=== PATIENT | female | born 1950 | race Caucasian/White ===

== ENCOUNTER → 2016-08-25 | Outpatient (CLI) | payer OTHER, BC ==
[~2016-08-25] MED LIST: DIFLUCAN100 MG PO; LIPITOR10 MG PO; METFORMIN HCL500 MG PO; PERCOCET PO; TUMS PO; XARELTO10 MG PO; ZOLOFT50 MG PO
== END ==
LOC: RAD 10:41
DX: Z12.31 Encounter for screening mammogram for malignant neoplasm of breast (principal)

== ENCOUNTER → 2017-09-13 | Outpatient (CLI) | payer OTHER | LOC: RAD 13:49 | DX: Z12.31 Encounter for screening mammogram for malignant neoplasm of breast (principal) ==

== ENCOUNTER → 2018-05-22 | Outpatient (CLI) | payer OTHER ==
[~2018-05-22] VITALS: Ht 167.6 cm; Wt 89.4 kg
[~2018-05-22] MED LIST changes: +ALEVE220 MG PO; +ASPIR 8181 MG PO; +BENADRYL25 MG PO; +COZAAR 25 MG TA25 M2 PO; +JARDIANCE25 MG PO
[2018-05-22 07:44] VITALS: BP 118/49
--- NOTE | 2018-05-22 09:31 | CATHLAB ---
[facility] [address] [place] [address] INVASIVE PROCEDURE REPORT Name: ALODETTESONAM Room #: [facility] [id number] ������������� Admission: 05/22/18 ������������� Attend Phys: Rojelio Moore, Discharge: ��� ������������� ��� Date of : 46 Date of Service: 05/22/18 0931 �� Report #: [id number] �������� ��������������������������������������������[id number] THIS REPORT FOR: //name// APPROVED REPORT Study performed: 05/22/2018 08:21:28 Patient Details Patient Status: Out-Patient Room #: The patient is a 67 year-old female Event Personnel Rojelio Moore Nutrition Educator, Westley Cortes RN, Jack, Chante Monitor, Angel Lawler Scrub Procedures Performed Art Access - R femoral artery* 24502 Initial Mod Sed Same Phys/QHP Gr5y 746504 14909 Mod Sed Same Phys/QHP Ea 018926 Left Heart Cath w/or w/o Coronaries [id number] [facility] Hemostasis w/ Mynx Indication Chest pain Procedure Narrative The patient was brought electively to the Cardiac Catheterization Laboratory and was prepped and draped in a sterile manner. The Right Groin^ was infiltrated with 1% Lidocaine subcutaneous anesthesia. A PINNACLE 6FR Sheath #[id number] sheath was inserted into the RFA^. Coronary angiography was performed using coronary diagnostic catheters. The right coronary system was accessed and visualized with a JR 4 catheter. The left coronary system was accessed and visualized with a JL4 catheter. The left ventricle was accessed and visualized with a Pigtail catheter. Left ventricular/Aortic Valve gradient assessed via catheter pullback. Left ventriculogram was performed in SHELDON projection. Closure device was deployed with a 6 Fr Mynx. The patient tolerated the procedure well and there were no complications associated with the procedure. There was no hematoma. Intraoperative Conscious Sedation Sedation start time: 08:48 Case end Time: 09:05 Fentanyl 50 mcg Versed 1.5 mg Fluoro Time: 1.13 minutes Dose: DAP 2562.00 cGycm2 297 mGy [facility] [address] [place] [address] INVASIVE PROCEDURE REPORT Name: TEOSONAM Room #: REG [facility]#: [id number] ������������� Admission: 05/22/18 ������������� Attend Phys: Rojelio Moore, Discharge: ��� ������������� ��� Date of : 46 Date of Service: 05/22/18 0931 �� Report #: [id number] �������� ��������������������������������������������[id number] Contrast Type and Amount: Omnipaque 120 ml Coronary Angiography The patient's coronary anatomy is right dominant. Diagnostic Cath Left Main Normal left main LAD Mild 10-20% proximal, calcific plaquing, otherwise normal LAD Diagonal 1 Large, single diagonal branch with mild ostial plaquing (10-20%) Circumflex Large, nondominant circumflex comprised of a single first marginal branch. OM1 Large, angiographically normal and trifurcating first marginal branch Right Coronary The right coronary was dominant with scattered 20-30% proximal and mid vessel plaquing. R PDA Normal posterior descending branch RPLV Normal posterior lateral branch Left Ventriculography The left ventricle is normal in size with normal contractility. The left ventricular ejection fraction is estimated to be 60-65%. Left ventricular wall motion abnormalities are not present. There is no mitral insufficiency. Hemodynamics The aortic pressure is 149/54 mmHg with a mean of 89 mmHg. The left ventricular pressure is 161/7 mmHg with a mean of mmHg. The left ventricular end diastolic pressure is 20 mmHg. Conclusion 1. Normal global and regional left ventricular systolic function. Ejection fraction 65%. 2. Normal left main 3. Mild 20-30% scattered plaquing. Right coronary dominant circulation. Recommendations Aggressive Medical Therapy ��������������������������������������������� <ELECTRONICALLY SIGNED> ���������������������������������������� By: Rojelio Moore MD, FACC ��������������������������������������������� 05/22/18930 0 0 Rojelio Moore MD, FACC /INF
--- NOTE | 2018-05-22 16:06 | EKG ---
[place] [address] 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 LEROY : 1950 Requested By: Rojelio Moore Order Number: [id number] MD: Rojelio Moore Measurements Intervals [place] Rate: 52 P: 50 NV: 165 QRS: 11 QRSD: 92 T: 34 QT: 469 QTc: 437 Interpretive Statements Sinus bradycardia Otherwise normal tracing Compared to ECG 01/20/2014 12:03:03 No significant change was found Electronically Signed On 05-22-2018 16:06:45 FOOD PHOTOGRAPHER by Rojelio Moore [email or web address] ��������������������������������������������� <ELECTRONICALLY SIGNED> ���������������������������������������� By: Rojelio Moore MD, [facility] ��������������������������������������������� 05/22/18 1606 D: [id number] Rojelio Moore MD, FACC /EPI
== END | disposition home or self-care (01) ==
LOC: CATH 06:35
DX: I25.10 Atherosclerotic heart disease of native coronary artery without angina pectoris (principal); I10 Essential (primary) hypertension; E78.5 Hyperlipidemia, unspecified; E11.9 Type 2 diabetes mellitus without complications; Z87.891 Personal history of nicotine dependence; Z96.652 Presence of left artificial knee joint; Z79.82 Long term (current) use of aspirin; Z79.899 Other long term (current) drug therapy

== ENCOUNTER → 2018-10-12 | Outpatient (CLI) | payer OTHER | LOC: RAD 01:31 | DX: Z12.31 Encounter for screening mammogram for malignant neoplasm of breast (principal) ==

== ENCOUNTER → 2019-06-27 | Outpatient (CLI) | payer MEDICARE | LOC: SJCVC 11:24 | DX: I25.10 Atherosclerotic heart disease of native coronary artery without angina pectoris (principal); E78.5 Hyperlipidemia, unspecified; I10 Essential (primary) hypertension; E11.9 Type 2 diabetes mellitus without complications; Z90.49 Acquired absence of other specified parts of digestive tract; Z90.710 Acquired absence of both cervix and uterus; Z96.651 Presence of right artificial knee joint; Z79.899 Other long term (current) drug therapy ==

== ENCOUNTER → 2019-10-22 | Outpatient (CLI) | payer MEDICARE | LOC: BC 08:10 | PROVIDERS: ATTEND Obstetrics & Gynecology | DX: Z12.31 Encounter for screening mammogram for malignant neoplasm of breast (principal) ==

== ENCOUNTER → 2020-01-07 | Outpatient (CLI) | payer MEDICARE | LOC: SJCVC 10:03 | PROVIDERS: ATTEND Internal Medicine | DX: I25.10 Atherosclerotic heart disease of native coronary artery without angina pectoris (principal); R94.31 Abnormal electrocardiogram [ECG] [EKG]; R00.1 Bradycardia, unspecified; E78.5 Hyperlipidemia, unspecified; I10 Essential (primary) hypertension; E11.9 Type 2 diabetes mellitus without complications; Z79.899 Other long term (current) drug therapy; Z87.891 Personal history of nicotine dependence ==

== ENCOUNTER → 2020-01-14 | Outpatient (CLI) | payer OTHER | LOC: CAT 09:46 | PROVIDERS: ATTEND Internal Medicine | DX: Z12.2 Encounter for screening for malignant neoplasm of respiratory organs (principal); Z87.891 Personal history of nicotine dependence ==

== ENCOUNTER → 2020-07-09 | Outpatient (CLI) | payer OTHER | LOC: SJCVC 09:49 | PROVIDERS: ATTEND Internal Medicine | DX: R94.31 Abnormal electrocardiogram [ECG] [EKG] (principal); R00.1 Bradycardia, unspecified; I25.10 Atherosclerotic heart disease of native coronary artery without angina pectoris; E78.5 Hyperlipidemia, unspecified; I10 Essential (primary) hypertension; E11.9 Type 2 diabetes mellitus without complications; E78.00 Pure hypercholesterolemia, unspecified; Z90.49 Acquired absence of other specified parts of digestive tract; Z79.82 Long term (current) use of aspirin; Z79.899 Other long term (current) drug therapy; Z79.84 Long term (current) use of oral hypoglycemic drugs; Z86.718 Personal history of other venous thrombosis and embolism; Z88.1 Allergy status to other antibiotic agents ==

== ENCOUNTER → 2020-11-10 | Outpatient (CLI) | payer OTHER | LOC: RAD 08:17 | PROVIDERS: ATTEND Obstetrics & Gynecology | DX: Z12.31 Encounter for screening mammogram for malignant neoplasm of breast (principal) ==

== ENCOUNTER → 2021-01-13 | Outpatient (CLI) | payer OTHER | LOC: SJCVC 10:18 | PROVIDERS: ATTEND Internal Medicine | DX: I25.10 Atherosclerotic heart disease of native coronary artery without angina pectoris (principal); I10 Essential (primary) hypertension; E11.9 Type 2 diabetes mellitus without complications; E78.5 Hyperlipidemia, unspecified; Z79.82 Long term (current) use of aspirin; Z79.84 Long term (current) use of oral hypoglycemic drugs; Z79.899 Other long term (current) drug therapy; Z88.8 Allergy status to other drugs, medicaments and biological substances; Z87.891 Personal history of nicotine dependence ==

== ENCOUNTER → 2021-01-26 | Outpatient (CLI) | payer OTHER | LOC: CAT 08:13 | PROVIDERS: ATTEND Internal Medicine | DX: Z12.2 Encounter for screening for malignant neoplasm of respiratory organs (principal); I25.10 Atherosclerotic heart disease of native coronary artery without angina pectoris; Z87.891 Personal history of nicotine dependence ==